=== PATIENT | female | born 1985 | race Caucasian/White ===

== ENCOUNTER 2019-09-08 14:06 | Emergency (ER) | payer OTHER, SELFPAY ==
[2019-09-08 14:23] VITALS: BP 136/84; PULSE 98; RESP 16; TEMP 37.2; O2SAT 98
--- NOTE | 2019-09-08 14:35 | ED.EAR ---
HPI - Ear Problem General Chief complaint: Ear Stated complaint: swimmer's ear Time Seen by Provider: 09/08/19 14:36 Source: patient Mode of arrival: ambulatory Limitations: no limitations History of Present Illness HPI Narrative: Yvette Priest is a 34 yo female with no PMH who comes to express care with right ear pain. Ear pain started on Thursday and she went through her work who had called and eardrops with hydrocortisone she states they were not helping and so she called them again today. Her work number has prescribed amoxicillin p.o. as well as a different eardrop but she says that her ear is hurting her she is looking for someone to look at the ear and also discussed pain management Related Data Home Medications Medication Instructions Recorded Confirmed amoxicillin 1 mg PO BID 09/08/19 09/08/19 [id number] 3 drp TID 09/08/19 09/08/19 ofloxacin 1 drp RIGHTEAR DAILY 09/08/19 09/08/19 Allergies Allergy/AdvReac Type Severity Reaction Status Date / Time No Known Allergies Allergy Verified 09/08/19 14:28 Review of Systems Review of Systems: Narrative: CONSTITUTIONAL: Denies fever, chills, sweats. EYES: Denies visual changes, redness, discharge. ENT: Denies rhinorrhea, congestion, sore throat, right otalgia. CARDIOVASCULAR: Denies chest pain, palpitations, edema. RESPIRATORY: Denies dyspnea, wheezing, cough GASTROINTESTINAL: Denies abdominal pain, nausea, vomiting, diarrhea. GENITOURINARY: Denies dysuria, hematuria, abnormal discharge SKIN: Denies rash or itching. NEUROLOGIC: Denies numbness, or focal weakness. PSYCHIATRIC: Denies anxiety or depression. PMFSH Family History Family History Other Diabetes mellitus Heart disease Hypertension Social History Social History (Updated 09/08/19 @ 14:38 by Tiana Wild CNP) Smoking status: Never smoker Alcohol intake: never Gender identity (if verbalized by the patient): Female Comments At time of signature, I agree with nursing past medical, surgical, social and family history. There is no relevant family history pertinent to the presenting complaint. Exam Narrative: Exam Narrative: GENERAL: This is a well-nourished, well-developed patient, in mild distress. HEAD: normocephalic, atraumatic. EYES:Sclera clear/white. Vision is grossly intact. EARS: External ears normal, bilateral canal redness with edema, painful with touch, TMs normal without perforation. Hearing grossly intact. NOSE: External nose normal without nasal discharge, nares without redness, no rhinorrhea. THROAT: Mucous membranes moist, NECK: Neck supple, non-tender CARDIOVASCULAR: Regular rate and rhythm without murmurs, gallops, or rubs. RESPIRATORY: Clear to auscultation. Breath sounds equal bilaterally. No wheezes, rales, or rhonchi. GASTROINTESTINAL: Abdomen soft, SKIN: warm, intact with no suspicious lesions or rash, good texture and turgor. NEURO: awake, alert, and oriented to person, place and time. There were no obvious focal neurologic abnormalities. Steady gait EXTREMITIES: Normal range of motion. BACK: Nontender without deformity Course Course Emergency Course: Work health support called in amoxicillin po and changed neomycin HC to ofloxacin ear gtts Started ton T3 here- one q 4-6 hrs, 2 at HS Vital Signs Vital signs: Vital Signs Temperature 98.9 F 09/08/19 14:23 Pulse Rate 98 09/08/19 14:23 Respiratory Rate 16 09/08/19 14:23 Blood Pressure 136/84 09/08/19 14:23 Pulse Oximetry 98 09/08/19 14:23 Temperature 98.9 F 09/08/19 14:23 Pulse Rate 98 09/08/19 14:23 Respiratory Rate 16 09/08/19 14:23 Blood Pressure 136/84 09/08/19 14:23 Pulse Oximetry 98 09/08/19 14:23 Medical Decision Making Differential Diagnosis Differential Diagnosis: Bilateral ear pain versus otitis media versus bacterial infection Vital Signs Vital Signs: Vital Signs Temperature 98.9 F
== END 2019-09-08 15:00 | disposition home or self-care (01) ==
PROVIDERS: Emergency Provider Nurse Practitioner
DX: H65.03 Acute serous otitis media, bilateral (principal)
CPT/HCPCS: 99213; G0463